=== PATIENT | male | born 1990 | race African-American/Black ===

== ENCOUNTER 2021-10-07 13:39 | Emergency (ER) | payer MEDICAID ==
[~2021-10-07] VITALS: Ht 170.2 cm; Wt 68.0 kg
[2021-10-07] MEDS ORDERED: LORAZEPAM 2MG/ML CPJ IM ONE ×2 (14:30→15:00)
[2021-10-07] MEDS ORDERED: OLANZAPINE 10 MG/VIAL IM STA (14:32)
[2021-10-07 15:40] LABS: BASOPHILS % 0.6 % (0.0-2.0); EOSINOPHILS % 0.7 % (0.0-5.0); HEMATOCRIT. 39.9 % (42.0-52.0); HEMOGLOBIN. 13.6 g/dL (14.0-18.0); LYMPHOCYTES % 20.5 % (20.0-50.0); MEAN CORPUSCULAR VOLUME 91.2 fL (80.0-94.0); MEAN PLATELET VOLUME 7.9 fl (7.4-10.4); MONOCYTES % 14.6 % (2.0-8.0); NEUTROPHILS % 63.6 % (40.0-76.0); PLATELET 219 x1000/uL (130-400); RED BLOOD CELL COUNT 4.38 mill/uL (4.7-6.1); RED CELL DISTRIBUTION WIDTH 13.1 % (11.6-14.6)
[2021-10-07 16:01] LABS: CLARITY URINE CLOUDY (CLEAR); COLOR URINE DARK YELLOW (YELLOW); KETONES URINE TRACE (NEGATIVE); LEUKOCYTE ESTERASE URINE 1+ (NEGATIVE); NITRITE URINE NEGATIVE (NEGATIVE); OCCULT BLOOD URINE NEGATIVE (NEGATIVE); PH URINE 5.5 (4.5-8.0); PROTEIN URINE 2+ (NEGATIVE); SPECIFIC GRAVITY URINE 1.034 (1.005-1.030)
[2021-10-07 16:09] LABS: CHLORIDE 105 mEq/L (98-107)
[2021-10-07 16:17] LABS: ETHANOL BLOOD < 10 mg/dL
[2021-10-07 16:28] LABS: *AMPHETAMINES SCREEN URINE PRESUMTIVE POSITIVE (NEGATIVE); *BARBITURATES SCREEN URINE NEGATIVE (NEGATIVE); *BENZODIAZEPINES SCREEN URINE NEGATIVE (NEGATIVE); *COCAINE SCREEN URINE NEGATIVE (NEGATIVE); CANNABINOID URINE SCREEN PRESUMTIVE POSITIVE (NEGATIVE); METHADONE URINE SCREEN NEGATIVE (NEGATIVE); OPIATES URINE SCREEN NEGATIVE (NEGATIVE); PHENCYCLIDINE URINE SCREEN NEGATIVE (NEGATIVE)
[2021-10-07 18:10] VITALS: BP 101/62
== END 2021-10-08 02:01 | disposition home or self-care (01) ==
LOC: ER 13:39
DX: F23 Brief psychotic disorder (principal); R45.1 Restlessness and agitation; F91.8 Other conduct disorders; F15.10 Other stimulant abuse, uncomplicated; F16.10 Hallucinogen abuse, uncomplicated; F12.10 Cannabis abuse, uncomplicated; Z78.1 Physical restraint status
CPT/HCPCS: 36415; 80053; 80305; 80307; 80320; 80329; 81003; 83690; 85025; 87086; 96372; 99284; J2060; J3490; G0480

== ENCOUNTER 2021-11-07 03:26 | Emergency (ER) | payer MEDICAID ==
[~2021-11-07] VITALS: Ht 165.1 cm; Wt 61.0 kg
[2021-11-07 03:31] VITALS: BP 133/68
[2021-11-07] MEDS ORDERED: BACITRACIN ZINC OINT UDPKT TOP ONE (04:15)
[2021-11-07] MEDS ORDERED: ACETAMINOPHEN 325MG TABLET PO ONE (04:15)
== END 2021-11-07 04:35 | disposition home or self-care (01) ==
LOC: ER 03:26
DX: S80.211A Abrasion, right knee, initial encounter (principal); S00.81XA Abrasion of other part of head, initial encounter; X58.XXXA Exposure to other specified factors, initial encounter; Y93.9 Activity, unspecified; Y92.9 Unspecified place or not applicable
CPT/HCPCS: 99283